=== PATIENT | female | born 1945 | race Caucasian/White ===

== ENCOUNTER 2017-08-23 15:48 | Emergency (ER) | payer MEDICARE, SELFPAY ==
[2017-08-23 15:51] VITALS: BP 148/90; PULSE 108; RESP 18; TEMP 36.9; O2SAT 96; BMI 27.4
--- NOTE | 2017-08-23 16:28 | CT_ITS ---
STUDY: CT ABDOMEN AND PELVIS WITHOUT CONTRAST REASON FOR EXAM: Female, 71 years old. Nausea and vomiting times one hour RADIATION DOSAGE (If Supplied By Facility): CTDIvol = ( 13.25 ) mGy, DLP = ( 633.25 ) mGycm TECHNIQUE: Transaxial images were obtained from the dome of the diaphragm to the symphysis pubis without oral contrast, and without intravenous contrast. Sagittal and coronal images were reconstructed. Individualized dose optimization techniques were used for this CT. COMPARISON: None. FINDINGS: The visualized lung bases are unremarkable. The visualized portions of the heart are within normal limits. Normal liver. The gallbladder is packed with calcified gallstones. There are multiple benign calcified granulomata of the spleen. Normal pancreas. Normal bilateral adrenal glands. Normal right kidney. Normal left kidney. The stomach contains a moderate amount of fluid and food. Normal small intestine. Normal colon. There is non-visualization of the appendix. There are calcified plaques of the abdominal aorta and iliac arteries. Normal inferior vena cava. Normal retroperitoneum. Normal urinary bladder. There is absence of the uterus consistent with a prior hysterectomy. There is a heterogeneous left adnexal mass containing solid and cystic component measuring 6.5 x 7.2 x 4.7 cm. There is also demonstrated cervical prominence with surrounding fatty stranding. There is a small umbilical hernia containing fat. There is a lucent focus with central osseous nidus of the T10 body suggestive of an intraosseous hemangioma. There are diffuse degenerative changes of the visualized thoracolumbar spine. CT/Abdomen/Pelvis without Cont IMPRESSION: Left adnexal mass as reported above. Malignancy should be considered and further evaluation is recommended. MRI may be helpful for further evaluation at this time. There is also demonstrated cervical prominence with surrounding fatty stranding. Further evaluation of this region is also recommended. There is no evidence of ileus or obstruction. Cholelithiasis. Other findings as reported above. Electronically Signed: Mihir Cruz MD at 18:00 EST , Service support ,
[2017-08-23] MEDS: Ondansetron ODT 4 MG Tablet PO (16:34)
--- NOTE | 2017-08-23 19:37 | ED.VISSUMM ---
- ER Visit Summary Date of Service: 08/23/17 Chief Complaint: Nausea and vomiting History of Present Illness: The patient is a 71 F with a history of chronic back pain. She had injections in her back last week. Patient states she slipped on water and fell onto her back yesterday. She was sitting at home today and developed nausea and vomiting approximately 45 minutes prior to arrival. Patient is a very poor historian keeps changing her story. She also complaining of mild pain to the right lower quadrant. She has not had fever. Physical Examination: Vital signs are gross unremarkable. Patient sitting upright in bed no acute distress. Head neck examination was no external sign of trauma. Heart is regular rate and rhythm. Lung sounds are clear. Abdomen is soft with mild tenderness in the right lower quadrant. There is no guarding or rebound. Back examination was mild tenderness in the upper lumbar midline spine and across the posterior pelvis. Neuro exam reveals good strength and sensation throughout. Test Results: CT scan of the flank was obtained. No acute bony injury is noted. There is evidence of a left adnexal mass which has both solid and cystic components. This measures 6.5 x 7.2 x 4.7 cm. They are recommending follow-up MRI. They cannot rule out malignancy. Emergency Department Course and Treatment: Patient was given Zofran. Repeat evaluation she has no complaints. CT findings were discussed with patient and at bedside. I spoke with Dr. Vickers, on-call for Dr. Kamara, the patient's primary care physician. He will relay the message that patient will need follow-up and outpatient MRI testing. Treatment Plan: [] Disposition: Discharge Impression: Left adnexal mass This note was generated with [employer] dictation software. It may contain incorrect words, spelling, and punctuation that were not noted in review of the chart prior to signing ED Disposition - Plan for ED Patient: Disposition: Home or Assisted Living Chief Complaint: Nausea/Vomiting Instructions: ED Nausea Vomiting Referrals: Hector Kamara MD [Primary Care Provider] - As soon as possible Additional Instructions: Your CT scan revealed a mass in your pelvis - this will require follow-up testing. Call Dr Kamara's office in the morning.
[2017-08-23 19:45] VITALS: BP 158/91; PULSE 86; RESP 16; O2SAT 97
== END 2017-08-23 19:46 | disposition home or self-care (01) ==
PROVIDERS: Emergency Provider Emergency Medicine; Family Provider Family Medicine; PCP Family Medicine
DX: R19.09 Other intra-abdominal and pelvic swelling, mass and lump (principal); R11.2 Nausea with vomiting, unspecified; M54.9 Dorsalgia, unspecified; G89.29 Other chronic pain; R10.31 Right lower quadrant pain; F03.90 Unspecified dementia, unspecified severity, without behavioral disturbance, psychotic disturbance, mood disturbance, and anxiety; W01.0XXA Fall on same level from slipping, tripping and stumbling without subsequent striking against object, initial encounter; Y93.9 Activity, unspecified; Y92.9 Unspecified place or not applicable
CPT/HCPCS: 74176; 99283

== ENCOUNTER 2017-09-20 09:04 | Day surgery (SDC) | payer MEDICARE, SELFPAY ==
--- NOTE | 2017-09-20 09:13 | EKG12_ITS ---
Test Reason : PREOP Blood Pressure : / mmHG Vent. Rate : 070 BPM Atrial Rate : 070 BPM P-R Int : 174 ms QRS Dur : 074 ms QT Int : 386 ms P-R-T Axes : -12 041 068 degrees QTc Int : 416 ms Normal sinus rhythm Normal ECG When compared with ECG of 03-NOV-2011 14:40, Vent. rate has decreased BY [address] no longer depressed in Inferior leads Confirmed by ALMA SALES ([id number]), photo editor MARY ARNOLD ([id number]) on 09/24/2017 2:20:19 PM Referred By: Lulu Sparrow Confirmed By:ALMA SALES
[2017-09-20 09:23] VITALS: BP 147/69; PULSE 63; RESP 18; TEMP 37.1; O2SAT 97; BMI 27.6
[2017-09-20] MEDS: Bupivacaine Mpf 0.5% 30 ML VIAL (12:42)
[2017-09-20 13:23] VITALS: BP 147/69; BP 159/80; PULSE 83; RESP 16; TEMP 36.4; O2SAT 94
[2017-09-20 13:30] VITALS: BP 147/69; BP 157/83; PULSE 78; RESP 16; O2SAT 91
[2017-09-20 13:45] VITALS: BP 147/69; BP 155/71; PULSE 71; RESP 16; O2SAT 99
[2017-09-20 13:54] VITALS: BP 147/69; BP 148/71; PULSE 66; RESP 16; TEMP 36.9
--- NOTE | 2017-09-20 14:46 | PCM.DC ---
You will use the following diet at home:: No restrictions Discharge Activity: Return to Normal Activity, May Shower May resume sexual activity in: 2 weeks Lifting Restrictions: 20 Call your doctor if your incision/area has: Continuous Slow Oozing, Sudden Increased Bleeding, Increased Pain/ Swelling, Increased Redness, Foul Smelling Discharge, Swelling at the incision site Call your doctor if you observe: Fever of 101 or Higher Cleanse incision/area with: Soap & Water, - - you have skin glue on incisions - do not pick off- may let soap and water run over them and dab dry. Allergies/Adverse Reactions: Allergies cephalexin [From Keflex] Allergy (Verified 09/18/17 14:16) Rash clarithromycin [From Biaxin] Allergy (Verified 09/18/17 14:16) Rash dextroamphetamine Allergy (Verified 09/18/17 14:16) Swelling diazepam Allergy (Verified 09/18/17 14:16) Hives erythromycin base Allergy (Verified 09/18/17 14:16) Rash fluticasone [From Flovent Diskus] Allergy (Verified 09/18/17 14:16) Swelling latex Allergy (Verified 09/18/17 14:07) Rash naproxen Allergy (Verified 09/18/17 14:16) Hives Penicillins Allergy (Verified 09/18/17 14:07) Hives povidone-iodine [From Betadine] Allergy (Verified 09/18/17 14:16) Rash soap [From Betadine] Allergy (Verified 09/18/17 14:16) Rash Qbpvbwy-Asl-Cpe Reductase Inhibitor Allergy (Verified 09/18/17 14:16) Unknown Sulfa (Sulfonamide Antibiotics) Allergy (Verified 09/18/17 14:16) Rash acetaminophen [From Percocet] Adverse Reaction (Verified 09/18/17 14:16) MENTAL STATUS CHANGE codeine Adverse Reaction (Verified 09/18/17 14:16) MENTAL STATUS CHANGE homatropine [From Hycodan (with homatropin)] Adverse Reaction (Verified 09/18/17 14:16) MENTAL STATUS CHANGE hydrocodone [From Hycodan (with homatropin)] Adverse Reaction (Verified 09/18/17 14:16) MENTAL STATUS CHANGE omeprazole Adverse Reaction (Verified 09/18/17 14:16) BLEEDING GUMS oxycodone [From Percocet] Adverse Reaction (Verified 09/18/17 14:16) MENTAL STATUS CHANGE yeast, dried Adverse Reaction (Verified 09/18/17 14:16) Nausea/Vom/Diarrhea NOVACAINE Adverse Reaction (Uncoded 09/18/17 14:16) MENTAL STATUS CHANGE Medications to take at Discharge Aspirin E.C. [Ecotrin] 81 mg PO DAILY@0800 09/18/17 Fenofibrate Nanocrystallized [Triglide] 160 mg PO DAILY 09/18/17 Multivitamin [Multiple Vitamins] 1 each PO DAILY 09/18/17 Ibuprofen [Motrin] 400 mg PO Q4H #30 tab 09/20/17 The following prescriptions were given: Ibuprofen [Motrin] 400 mg PO Q4H #30 tab Primary Care Physician: Hector Kamara MD [Primary Care Provider] - Please Follow Up With: Lulu Sparrow MD When: 2 weeks as scheduled
--- NOTE | 2017-09-20 14:51 | PCM.OPRPT ---
Report of Operation Date of Procedure: 09/20/17 Pre-Operative Diagnosis: left adenexal mass and LLQ pain Post-Operative Diagnosis: same Surgery/Procedure Performed:: diagnostic laparascopy Description of Surgical Findings:: large amount of adhesions of sigmoid colon, normal right atrophic ovary and tubal remnant fats and oils loader: Radha Doyle fats and oils loader: Fabiano [id number] Type of Anesthesia:: General Anesthesiologist: Brianna Stubbs Special Medications: none Specimen's removed: none Drains: none Estimated Blood Loss (mL): 10cc Fluids Replaced: 500 cc LR Description of Procedure: The patient was taken to the operating room where she was prepped and draped in the dorsolithotomy position. A weighted speculum was placed in the vagina and a sponge stick was placed in the vagina. The cervix is absent due to previous hysterectomy. Attention was turned to the abdomen. All port sites were infiltrated with 0.5% Marcaine before skin incisions were made. A 5 mm [intraumbilical] incision was made. The anterior abdominal wall was tented up with 2 towel clamps while a 5 mm blade less trocar and sleeve were inserted with vertical trocar under visualization. Intraperitoneal placement was confirmed with the laparoscope. The pneumoperitoneum was created and the underlying abdominal contents were intact. The patient was placed in Trendelenburg. Right and left lower quadrant ports were placed under direct visualization lateral to the inferior epigastric vessels. The bowel was swept away and the above findings were noted. Was noted that there were large amount of adhesions of the sigmoid colon clear up to the anterior abdominal wall completely obscuring the vaginal cuff, left ovary, and bladder. Obvious windows in this to initiate adhesion lysis. We consulted with the general surgeon intraoperatively who arrives and upon inspection of the pelvic contents, recommended that we did not initiate extensive adhesional lysis at this time, as it significant risk of possible bowel injury or resection. The peritoneum of the remaining abdominal contents was smooth. There is no ascites. The right ovary was very atrophic and completely adhered to the right pelvic sidewall and actually suspended from the sidewall. Small tubal remnant that appeared normal. Point decision was made to terminate the case. The lateral ports were removed under direct visualization and no active bleeding was noted. The pneumoperitoneum was released. The skin incisions were closed with Monocryl suture in a subcuticular fashion and skin glue and the student with me present.. The vaginal instruments were removed and the vaginal sweep was completed by me. The procedure was performed by me with assistance other than as dictated above. All sponge and needle counts were correct and the patient was taken to the recovery room in stable condition. Grafts/Implants Used: none - Complications none - Admit VTE Documentation VTE Present on Admission: No VTE Mechan Device Prophylaxis: SCD's VTE Pharm Prophylaxis ordered?: No Reason prophylaxis not ordered:: Procedure Not Indicated
[2017-09-20 15:10] VITALS: BP 147/69
== END 2017-09-20 15:25 | disposition home or self-care (01) ==
LOC: SDC 09:05 → AC 09:06
PROVIDERS: Family Provider Family Medicine; PCP Family Medicine; Visit Provider Obstetrics & Gynecology
PROC: (CPT 49320; principal; 2017-09-20 10:40)
DX: R19.09 Other intra-abdominal and pelvic swelling, mass and lump (principal); R10.32 Left lower quadrant pain; Z90.710 Acquired absence of both cervix and uterus; K66.0 Peritoneal adhesions (postprocedural) (postinfection); K21.9 Gastro-esophageal reflux disease without esophagitis; Z79.82 Long term (current) use of aspirin; Z79.899 Other long term (current) drug therapy; J45.909 Unspecified asthma, uncomplicated; E78.5 Hyperlipidemia, unspecified
CPT/HCPCS: 00840; 49320; 86850; 86900; 93005; J7120; J2405

== ENCOUNTER → 2017-10-23 08:53 | Outpatient (CLI) | payer MEDICARE, SELFPAY | PROVIDERS: Family Provider Family Medicine; PCP Family Medicine; Visit Provider Family Medicine | DX: R39.9 Unspecified symptoms and signs involving the genitourinary system (principal) | CPT/HCPCS: 87086; 87088 ==

== ENCOUNTER → 2017-10-31 15:42 | Outpatient (CLI) | payer MEDICARE, SELFPAY | PROVIDERS: Family Provider Family Medicine; PCP Family Medicine; Visit Provider Family Medicine | DX: N39.0 Urinary tract infection, site not specified (principal) | CPT/HCPCS: 87077; 87086; 87088; 87186 ==

== ENCOUNTER → 2017-11-14 14:12 | Outpatient (CLI) | payer MEDICARE, SELFPAY | PROVIDERS: Family Provider Family Medicine; PCP Family Medicine; Visit Provider Family Medicine | DX: N39.0 Urinary tract infection, site not specified (principal) | CPT/HCPCS: 87086; 87088 ==

== ENCOUNTER → 2017-11-29 14:29 | Outpatient (CLI) | payer MEDICARE, SELFPAY | PROVIDERS: Family Provider Family Medicine; PCP Family Medicine; Visit Provider Family Medicine | DX: N39.0 Urinary tract infection, site not specified (principal) | CPT/HCPCS: 87086; 87088; 87186 ==

== ENCOUNTER → 2017-12-07 14:16 | Outpatient (CLI) | payer MEDICARE, SELFPAY | PROVIDERS: Family Provider Family Medicine; PCP Family Medicine; Visit Provider Family Medicine | DX: R30.0 Dysuria (principal) | CPT/HCPCS: 87077; 87086; 87088; 87186 ==

== ENCOUNTER 2019-01-17 18:55 | Emergency (ER) | payer MEDICARE, SELFPAY ==
[2019-01-17 18:55] VITALS: BP 151/88; PULSE 84; RESP 16; TEMP 36.7; O2SAT 97; BMI 25.3
--- NOTE | 2019-01-17 19:56 | CT_ITS ---
STUDY: CT BRAIN WITHOUT CONTRAST REASON FOR EXAM: Female, 73 years old. Fall. RADIATION DOSAGE (If Supplied By Facility): CTDIvol = ( 44.99 ) mGy, DLP = ( 779.24 ) mGycm TECHNIQUE: Transaxial CT imaging of the brain was performed without administration of intravenous contrast material. Individualized dose optimization techniques were used for this CT. COMPARISON: None. FINDINGS: There is no acute bleed or infarct. There are chronic ischemic and atrophic changes. The ventricles are normal in configuration. There is no hydrocephalus. The visualized paranasal sinuses are clear. The mastoid air cells are well aerated. There is no skull fracture. There is scalp soft tissue swelling in the right frontotemporal region. CT/Brain/Head without Contrast IMPRESSION: No acute intracranial abnormality. Chronic ischemic and atrophic changes. Scalp soft tissue swelling in the right frontoparietal region. Electronically Signed: Philip Clark, at 20:27 EDT Tel , Service support ,
--- NOTE | 2019-01-17 20:43 | ED.DCSUM_ITS ---
- ER Visit Summary Date of Service: 01/17/19 Chief Complaint: [Fall] History of Present Illness: The patient is a 73 F [presents to the emergency department after sustaining a fall. Patient apparently tripped on a curb and fell striking her head on the ground. No loss of consciousness. Patient's hypefkjf-iu-jld was with her. Patient denies any neck pain. Patient has been ambulatory since. She is unsure of her last tetanus. Patient also sustained an abrasion to her right knee. She denies any neck pain or chest pain. She denies any abdominal pain.] Physical Examination: [HEENT-PERRLA, EOMI. Cranial nerves II through XII grossly intact. TMs clear. Mucous membranes moist. No adenopathy. Patient has a hematoma to the right forehead. No bony depressions. She has no C-spine tenderness on palpation. He has normal active range of motion is painless. Cardiovascular-regular rate and rhythm without murmur or ectopy Lungs-clear to auscultation, chest wall stable without crepitus or subcu emphysema Abdomen-normoactive bowel sounds, soft, nontender, no rebound or rigidity, no peritoneal signs. Extremities-intact ?4, normal range of motion, normal pulses. Right knee- patient has superficial abrasions noted patient has normal range of motion. No bony tenderness on exam. Neurovascular intact distally.] Test Results: [CT scan of the brain without contrast showed no acute intracranial injury.] Emergency Department Course and Treatment: [] Treatment Plan: [Patient advised to use Tylenol for discomfort. Patient advised use ice to the area. Patient to follow-up with her primary care physician in 3 to 5 days.] Disposition: [Discharged to home stable condition] Impression: [Mechanical fall Closed head injury Right knee abrasion/contusion] This note was generated with [employer] dictation software. It may contain incorrect words, spelling, and punctuation that were not noted in review of the chart prior to signing ED Disposition - Plan for ED Patient: Referrals: Hector Kamara MD [Primary Care Provider] -
--- NOTE | 2019-01-17 20:45 | ED.DEP ---
ED Disposition - Plan for ED Patient: Instructions: FALL, Mechanical, HEAD INJURY, No Wake-Up (Adult), CONTUSION, Lower Extremity Referrals: Hector Kamara MD [Primary Care Provider] - 3-5 Days
[2019-01-17] MEDS: Diphth,Pertuss(Acell),Tet Vac 0.5 ML Vial IM (21:01)
[2019-01-17 21:17] VITALS: BP 152/79; PULSE 67; RESP 15; O2SAT 96
== END 2019-01-17 21:18 | disposition home or self-care (01) ==
LOC: ED 20:18
PROVIDERS: Emergency Provider Emergency Medicine; Family Provider Family Medicine; PCP Family Medicine
DX: S00.83XA Contusion of other part of head, initial encounter (principal); S80.211A Abrasion, right knee, initial encounter; S80.01XA Contusion of right knee, initial encounter; W10.1XXA Fall (on)(from) sidewalk curb, initial encounter; Y93.9 Activity, unspecified; Y92.9 Unspecified place or not applicable; F03.90 Unspecified dementia, unspecified severity, without behavioral disturbance, psychotic disturbance, mood disturbance, and anxiety
CPT/HCPCS: 70450; 90715; 99282

== ENCOUNTER 2020-02-20 18:04 | Emergency (ER) | payer MEDICARE, SELFPAY ==
[2020-02-20 18:05] VITALS: BP 135/81; PULSE 79; RESP 16; TEMP 37.4; O2SAT 94; BMI 27.1
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
--- NOTE | 2020-02-20 18:11 | EKG12_ITS ---
Test Reason : MSC Blood Pressure : / mmHG Vent. Rate : 066 BPM Atrial Rate : 066 BPM P-R Int : 178 ms QRS Dur : 076 ms QT Int : 408 ms P-R-T Axes : 038 029 050 degrees QTc Int : 427 ms Normal sinus rhythm Nonspecific ST and T wave abnormality Abnormal ECG Confirmed by ANABEL ANDRE, TALIB ([id number]), film or videotape editor LISA BROWNE ([id number]) on 02/23/2020 2:33:55 PM Referred By: Confirmed By:TALIB LITTLE MD
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
[2020-02-20 18:39] LABS: Absolute Lymphocyte Count 1.79 X10^3/uL (0.83-4.51); Absolute Neutrophil Count 5.2 X10^3/uL (2.0-7.7); Basophil# 0.05 X10^3/uL; Basophil% 0.7 % (0-1); Eosinophil# 0.11 X10^3/uL; Eosinophils% 1.4 % (0-5); Hematocrit 37.6 % (37-47); Hemoglobin 11.8 g/dL (12.0-15.0); Lymphocyte # 1.79 X10^3/ul (4.0); Lymphocyte % 23.4 % (19-41); Mean Corp Hgb Conc 31.4 g/dL (32-36); Mean Corpuscular Hgb 27.7 pg (27.0-32.0); Mean Corpuscular Volume 88.3 fL (81-99); Mean Platelet Vol. 10.3 fl (6.2-12.0); Monocyte# 0.48 X10^3/uL; Monocyte% 6.3 % (0-10); NRBC Flagged by Analyzer 0 % (0-5); Neutrophil # 5.19 X10^3/uL (2.7-7.7); Neutrophil % 67.8 % (47-70); Platelet Count 344 K/mm3 (150-450); RBC Distribution Width SD 45.1 fl (35.1-43.9); Red Blood Count 4.26 M/mm3 (4.2-5.4); White Blood Count 7.7 K/mm3 (4.4-11.0)
[2020-02-20 19:02] LABS: ALB/GLOB Ratio 0.8 RATIO (0.9-2.4); AST(SGOT) 10 U/L (15-37); Alanine Aminotransfer ALT/SGPT 13 U/L (13-56); Albumin, Serum 3.4 g/dL (3.2-5.0); Alkaline Phosphatase 106 U/L (45-117); Anion Gap 6 (5-15); BUN 13 mg/dL (7-18); BUN/Creat Ratio 11.3 RATIO (10-20); Calcium,Total 8.7 mg/dL (8.5-10.1); Chloride 108 mmol/L (98-107); Creatinine, Serum 1.15 mg/dL (0.55-1.02); EST Glomerular Filtration Rate 49 mL/min (>60); Est Glom Filt Rate - Afr Amer 60 mL/min (>60); Estimated Creatinine Clearance 38.18 ml/min; Globulin 4.2 g/dL (2.2-4.2); Glucose 126 mg/dL (74-106); Potassium 3.2 mmol/L (3.5-5.1); Protein, Total 7.6 g/dL (6.4-8.2); Sodium Level 143 mmol/L (136-145); Thyroid Stim Hormone (TSH) 1.72 uIU/mL (0.358-3.74)
[2020-02-20] MEDS: Ziprasidone IM 20 MG/ML VIAL 10 MG IM ×2 (19:06→22:26)
--- NOTE | 2020-02-20 19:35 | RAD_ITS ---
STUDY: X-RAY CHEST REASON FOR EXAM: Female, 74 years old. ALTERED MENTAL STATUS, SEEING PEOPLE AND WAS PHYSICALLY AGGRESSIVE WITH TODAY. TECHNIQUE: Frontal and lateral views COMPARISON: 09/14/2010 FINDINGS: The lungs are not fully expanded. Minimal left basilar atelectasis. Normal size heart. Normal mediastinum and vince. Normal visualized pulmonary arteries. Normal visualized aortic arch and descending thoracic aorta. Normal visualized thoracic spine. Degenerative changes at the shoulders. There is no demonstrated abnormality of the visualized soft tissue structures of the upper abdomen. RAD/Chest PA and Lateral IMPRESSION: Minimal left basilar atelectasis. Electronically Signed: Lalito Lewis DO at 19:57 EDT Tel [phone], Service support ,
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
[2020-02-20 20:19] LABS: Bacteria 0 SEEN /hpf (None Seen); Red Blood Cells-Urine 0 SEEN /hpf (0-5); Squamous Epithelial Cells - UA 0 SEEN /hpf (5-10)
[2020-02-20 20:25] LABS: Color, Urine Yellow (Yellow); Glucose, Dipstick Normal (Normal); Ketone-Dipstick 5 mg/dl (Negative); Leukocyte Esterase-Dipstick 500 /ul (Negative); Nitrite-Dipstick Negative (Negative); Occult Blood-Urine 25 /ul (Negative); Protein-Dipstick 15 mg/dl (Negative); Specific Gravity, Urine 1.015 (1.002-1.030); Urine Bilirubin Dipstick Negative (Negative); Urine Clarity Sl. Cloudy (Clear); Urine Urobilinogen Normal (Normal)
[2020-02-20 20:32] LABS: Mucous, Urine 2+ /hpf (<or=2+); White Blood Cells 25-50 SEEN /hpf (0-5)
[2020-02-20 21:16] LABS: Amphetamine Urine VISTA NEGATIVE (<1000 ng/mL); Barbiturate Urine VISTA NEGATIVE (< 200 ng/mL); Benzodiazepine Urine VISTA NEGATIVE (< 200 ng/mL); Cocaine Urine VISTA NEGATIVE (< 300 ng/mL); Ecstacy Urine VISTA NEGATIVE (< 500 ng/mL); Methadone Urine VISTA NEGATIVE (< 300 ng/mL); PCP Urine VISTA NEGATIVE (< 25 ng/mL); THC Urine VISTA NEGATIVE (< 50 ng/mL); Vista UDS pH Range 7
--- NOTE | 2020-02-20 21:39 | CM.ED ---
Social Work Telephone call to patient spouse, Johnathon. Johnathon agreeing to transportation of patient to inpatient psychiatric facility for stabilization. Johnathon is also requesting for Ann Marie to be the main contact for patient and further updates. [facility] Clinical information faxed. Pending review. Karely Abbott
[2020-02-20] MEDS: Nystatin Powder 15gm Bottle 1 APPLIC TOPICAL (22:26)
--- NOTE | 2020-02-20 22:39 | CM.ED ---
Social Work Telephone call from [facility]. Patient has been accepted pending COVID-19 test results. [place] faxed. Updated medical team on above. Medical doctor ordering COVID-19 test. Karely AMARO, JOURDAN
[2020-02-20 23:43] LABS: Probe Check PASS; Specimen Processing Control PASS
--- NOTE | 2020-02-20 23:46 | CM.ED ---
Social Work Telephone call to [facility]. COVID-19 results provided. Patient has been accepted. Patient admitted by Dr. Sanchez. Nurse to call report to: [phone]. Patient to admit to [facility]. Updated medical team. Updated patient family, Ann Marie. Karely AMARO, JOURDAN
[2020-02-21] MEDS: Haloperidol Lactate 5 MG/ML Vial 2 MG IM (00:40)
[2020-02-21 02:15] VITALS: BP 155/81; PULSE 64; RESP 15; TEMP 36.8; O2SAT 97
[2020-02-21 02:16] VITALS: BP 155/81; PULSE 64; RESP 15; TEMP 36.8; O2SAT 97
== END 2020-02-21 02:38 ==
PROVIDERS: Emergency Medicine; Emergency Provider Emergency Medicine; PCP Family Medicine
DX: F03.91 Unspecified dementia, unspecified severity, with behavioral disturbance (principal); R44.1 Visual hallucinations; B37.2 Candidiasis of skin and nail
CPT/HCPCS: 70450; 71046; 80053; 80307; 80320; 81001; 84443; 84484; 85025; 87635; 93005; 94799; 96372; 99285; G0480; J3486; U0003